=== PATIENT | male | born 1975 | race Caucasian/White ===

== ENCOUNTER → 2016-06-24 | Outpatient (CLI) | payer OTHER ==
--- NOTE | 2016-06-24 12:58 | KCIC ---
PROCEDURE CT abdomen pelvis without contrast. HISTORY Kidney stones, enlarged prostate, urinary frequency and hesitation TECHNIQUE Noncontrast CT imaging was performed of the abdomen and pelvis, multiplanar reconstruction images submitted. Exposure: One or more of the following individualized dose reduction techniques were utilized for this exam: 1. Automated exposure control. 2. Adjustment of the mA and/or kV according to patient size. 3. Use of iterative reconstruction technique. COMPARISON February 09, 2012 FINDINGS Accurate evaluation of the abdominal visceral organs is limited without intravenous contrast. There is no new obvious abnormality of the liver, spleen, pancreas. There is again cystic collection along the posterior aspect of the liver 7.2 cm transverse oblique by 3.9 cm AP oblique slightly larger than previously although density characteristics suggestive of simple fluid. There is no adrenal nodularity. Gallbladder is present, gallstone present on the order of 0.7 centimeters. There is no hydronephrosis or renal calculus on either side. No ureteral calculus is identified. Accurate evaluation of bowel is limited without oral contrast. There is no significant bowel dilatation, free air, free fluid. Normal caliber appendix is visualized, mild hyperdensity near the origin which may be due to mild hyperdense stool, small appendicolith considered less likely. There is grade 1 anterior spondylolisthesis at L5-S1, disc osteophyte complex and degenerative disc disease at this level, mild narrowing of the right neural foramina. There is no significant abnormality of the limited visualized lung bases. IMPRESSION 1. There is no renal or ureteral calculus or hydronephrosis. 2. There is cholelithiasis. 3. There is again cystic lesion along the posterior aspect of the liver somewhat larger than previously although density characteristics suggestive of simple fluid, may be due to sequela of chronic seroma or developmental cyst. Electronically signed by: Dixon Montejo MD (Jun 24, 2016 12:57:07)
== END | disposition home or self-care (01) ==
LOC: KCIC CT 11:57
PROVIDERS: ATTEND Urology
DX: N20.0 Calculus of kidney (principal); K80.20 Calculus of gallbladder without cholecystitis without obstruction
CPT/HCPCS: 74176

== ENCOUNTER → 2016-10-21 | Outpatient (CLI) | payer OTHER ==
--- NOTE | 2016-10-21 14:56 | RAD ---
DATE: 10/21/2016 EXAM: DIGITAL DIAGNOSTIC BILATERAL HISTORY: Palpable lump in the upper inner left breast. COMPARISON: None This study was interpreted with the benefit of Computerized Aided Detection (CAD). FINDINGS: Both breasts are primarily fatty. No discrete mass is identified. No malignant-appearing microcalcifications are seen. A BB marker was placed at the area of palpable abnormality in the upper inner left breast and only fatty tissue at this location is seen. The axillae are unremarkable. Left breast ultrasound: Sonographic interrogation of the area of palpable abnormality in the upper inner left breast was performed. No solid or cystic mass is detected. Breast Density: FATTY The breast parenchyma is primarily fatty replaced. Breast parenchyma level density A. IMPRESSION: Unremarkable mammogram and left breast ultrasound. No suspicious abnormality is identified. BI-RADS CATEGORY: 1 NEGATIVE RECOMMENDED FOLLOW-UP: CLIN FOLLOW UP IMAGING CLINICALLY INDICATED Mammography is a sensitive method for finding small breast cancers, but it does not detect them all and is not a substitute for careful clinical examination. A negative mammogram does not negate a clinically suspicious finding and should not result in delay in biopsying a clinically suspicious abnormality. "Our facility is accredited by the [employer] Mammography Program."
== END | disposition home or self-care (01) ==
LOC: KCIC MAMMO 14:09
PROVIDERS: ATTEND Physician Assistant
DX: N63 Unspecified lump in breast (principal)
CPT/HCPCS: 76641; G0204; 77066

== ENCOUNTER → 2016-12-17 | Outpatient (CLI) | payer OTHER ==
--- NOTE | 2016-12-17 13:26 | KCIC ---
KUB History: Urinary calculi Comparison: June 24, 2016 CT exam Findings: Single supine AP view the abdomen is submitted. No calculi are seen in the expected course of ureters or in the region of renal shadows, right renal shadow partially obscured by bowel gas and stool. There is a nonobstructive bowel gas pattern. Impression: 1. No renal or ureteral calculi are identified by radiograph. Electronically signed by: Dannie Montejo MD (12/17/2016 1:22 PM) [id number]
== END | disposition home or self-care (01) ==
LOC: KCIC 12:26
PROVIDERS: ATTEND Urology
DX: N20.9 Urinary calculus, unspecified (principal)
CPT/HCPCS: 74000

== ENCOUNTER 2018-04-25 20:47 | Emergency (ER) | payer OTHER ==
[~2018-04-25] VITALS: Ht 180.3 cm; Wt 104.3 kg
[2018-04-25 21:04] VITALS: BP 153/83
[2018-04-25] MEDS ORDERED: DIPHTH,PERTUSS(ACELL),TET TOX 0.5 ML DISP.SYRIN. VAX IM ONE (21:30)
[2018-04-25] MEDS ORDERED: LIDOCAINE 1%/EPI 1:100,000 20 ML VIAL. INJ ONE (21:30)
[2018-04-25] MEDS ORDERED: DOXY100C2 PO (21:44)
--- NOTE | 2018-04-25 21:44 | PHYS DOC ---
Past Medical History Past Medical History: Anxiety, Depression Past Surgical History: No Surgical History Alcohol Use: None Drug Use: None Adult General Chief Complaint Chief Complaint: LACERATION/AVULSION HPI HPI Patient is a 43 year old [f__sex] who presents with [] Review of Systems Review of Systems Constitutional: Denies fever or chills [] Eyes: Denies change in visual acuity, redness, or eye pain [] HENT: Denies nasal congestion or sore throat [] Respiratory: Denies cough or shortness of breath [] Cardiovascular: No additional information not addressed in HPI [] GI: Denies abdominal pain, nausea, vomiting, bloody stools or diarrhea [] : Denies dysuria or hematuria [] Musculoskeletal: Denies back pain or joint pain [] Integument: Denies rash or skin lesions [] Neurologic: Denies headache, focal weakness or sensory changes [] Endocrine: Denies polyuria or polydipsia [] All other systems were reviewed and found to be within normal limits, except as documented in this note. Current Medications Current Medications Current Medications Medications (Trade) Dose Ordered Sig/Palomo Start Time Stop Time Status Last Admin Dose Admin Diphtheria/ Tetanus/Acell Pertussis (Boostrix) 0.5 ml ONCE ONCE 04/25/18 21:30 04/25/18 21:31 DC 04/25/18 21:26 0.5 ML Lidocaine/ Epinephrine (LIDOCAINE 1%-EPI 1:100,000 Multi-Dose) 20 ml 1X ONCE 04/25/18 21:30 04/25/18 21:31 DC 04/25/18 21:25 20 ML Allergies Allergies Allergies Coded Allergies Type Severity Reaction Last Updated Verified No Known Drug Allergies 04/25/18 No Physical Exam Physical Exam Constitutional: Well developed, well nourished, no acute distress, non-toxic appearance. [] HENT: Normocephalic, atraumatic, bilateral external ears normal, oropharynx moist, no oral exudates, nose normal. [] Eyes: PERRLA, EOMI, conjunctiva normal, no discharge. [] Neck: Normal range of motion, no tenderness, supple, no stridor. [] Cardiovascular:Heart rate regular rhythm, no murmur [] Lungs & Thorax: Bilateral breath sounds clear to auscultation [] Abdomen: Bowel sounds normal, soft, no tenderness, no masses, no pulsatile masses. [] Skin: Warm, dry, no erythema, no rash. [] Back: No tenderness, no CVA tenderness. [] Extremities: No tenderness, no cyanosis, no clubbing, ROM intact, no edema. [] Neurologic: Alert and oriented X 3, normal motor function, normal sensory function, no focal deficits noted. [] Psychologic: Affect normal, judgement normal, mood normal. [] Current Patient Data Vital Signs Vital Signs Date Time Temp Pulse Resp B/P (MAP) Pulse Ox O2 Delivery O2 Flow Rate FiO2 04/25/18 21:04 98.5 83 18 153/83 (106) 99 Room Air 98.5 EKG EKG [] Radiology/Procedures Radiology/Procedures [] Course & Med Decision Making Course & Med Decision Making Pertinent Labs and Imaging studies reviewed. (See chart for details) [] Dragon Disclaimer Dragon Disclaimer This electronic medical record was generated, in whole or in part, using a voice recognition dictation system. Departure Departure Impression: Primary Impression: Laceration Additional Impression: Need for tetanus booster Disposition: 01 HOME, SELF-CARE Condition: STABLE Referrals: SUKH HUMPHRIES MD (PCP) Patient Instructions: Laceration Care, Adult Additional Instructions: Take the antibiotic as directed. Follow-up with your primary care provider in 7- 10 days for suture removal. Watch for signs of infection. If the wound worsens return to the emergency department. Scripts Doxycycline Hyclate (DOXYCYCLINE HYCLATE) 100 Mg Capsule 1 CAP PO BID for wound, #20 CAP Prov: DULCE MARIA WATKINS APRN 04/25/18 Problem Qualifiers DULCE MARIA WATKINS APRN Apr 25, 2018 21:44
== END 2018-04-25 22:03 | disposition home or self-care (01) ==
LOC: ER 20:47
DX: S81.812A Laceration without foreign body, left lower leg, initial encounter (principal); V38.0XXA Driver of three-wheeled motor vehicle injured in noncollision transport accident in nontraffic accident, initial encounter; Y93.I9 Activity, other involving external motion; Y92.488 Other paved roadways as the place of occurrence of the external cause; Y99.8 Other external cause status
CPT/HCPCS: 90471; 90715; 99283; J3490; 12002